=== PATIENT | male | born 1965 | race Hispanic/Latino ===

== ENCOUNTER 2017-04-09 19:05 | Emergency (ER) | payer BC, OTHER ==
[2017-04-09 19:15] VITALS: RESP 16; TEMP 98; O2SAT 100; BMI 31.6
[2017-04-09] MEDS ORDERED: Oxycodone/Acetaminophen 5/325 mg Tab PO STA (19:20)
[2017-04-09] MEDS ORDERED: Oxycodone/Acetaminophen 5/325 mg Tab ONE (19:45)
--- NOTE | 2017-04-09 19:48 | ED PDOC ---
Upper Extremity Pain/Injury Time Seen by Provider: 04/09/17 19:44 Chief Complaint (Nursing): Upper Extremity Problem/Injury Chief Complaint (Provider): Right Shoulder injury History Per: Patient History/Exam Limitations: no limitations Onset/Duration Of Symptoms: Mins Current Symptoms Are (Timing): Still Present Quality: "Pain" Exacerbating Factor(s): Movement Additional Complaint(s): Ovidio Serra, a 51 year old male, presents to the ED with an injury to his right shoulder. The patient reports that while doing push ups he heard a "pop" sound and then felt immediate pain, prompting him to come into the ED. Denies numbness, tingling. PMD: Ovidio Ferrer Past Medical History Reviewed: Historical Data, Nursing Documentation, Vital Signs Vital Signs: Last Vital Signs Temp 98.0 F 04/09/17 19:13 Pulse 125 H 04/09/17 19:13 Resp 16 04/09/17 19:13 BP 124/87 04/09/17 19:13 Pulse Ox 100 04/09/17 19:13 - Medical History PMH: Back Problems - Surgical History Surgical History: Cholecystectomy - Family History Family History: States: Unknown Family Hx - Social History Current smoker - smoking cessation education provided: No Ex-Smoker (has not smoked in the last 12 months): No Alcohol: None Drugs: Denies - Home Medications Home Medications: Ambulatory Orders Medication Instructions Recorded Ibuprofen [Motrin] 600 mg PO Q8 #20 tab 10/15/14 Cyclobenzaprine [Cyclobenzaprine 10 mg PO BID #14 tab 04/09/17 HCl] Naproxen 500 mg PO BID #10 tablet. 04/09/17 - Allergies Allergies/Adverse Reactions: Allergies Allergy/AdvReac Type Severity Reaction Status Date / Time No Known Allergies Allergy Unverified 11/05/12 09:27 Review of Systems ROS Statement: Except As Marked, All Systems Reviewed And Found Negative Musculoskeletal: Positive for: Shoulder Pain (injury to right shoulder) Neurological: Negative for: Numbness (no numbness or tingling) Physical Exam - Reviewed Nursing Documentation Reviewed: Yes Vital Signs Reviewed: Yes - Physical Exam Appears: Positive for: Non-toxic, No Acute Distress Head Exam: Positive for: ATRAUMATIC, NORMAL INSPECTION, NORMOCEPHALIC Skin: Positive for: Normal Color, Warm, Dry. Negative for: Rash Eye Exam: Positive for: Normal appearance Extremity: Positive for: Tenderness (AC joint tenderness noted). Negative for: Normal ROM (Inability to range shoulder; Able to pronate and supinate right shoulder.), Deformity (no obvious deformity of right shoulder), Swelling Neurologic/Psych: Positive for: Alert, Oriented - ECG O2 Sat by Pulse Oximetry: 100 (RA) Pulse Ox Interpretation: Normal Medical Decision Making Medical Decision Makin Initial Impression 51 y/o male presenting with right shoulder injury Initial Plan: * Percocet (5/325 mg tab) 1 Tab PO * Toradol 30 mg IM * RAD right shoulder * Evaluation 2011 EXAM: XR Right Shoulder Complete, 2 or More Views CLINICAL HISTORY: 51 years old, male; Pain; Shoulder; Right; Additional info: Shoulder pain TECHNIQUE: Two or more views of the right shoulder. COMPARISON: No relevant prior studies available. FINDINGS: Bones/joints: Normal bone mineralization. No fracture. No dislocation. Acromioclavicular joint space narrowing and osteophyte formation. Soft tissues: Mineralization along the superolateral aspect of the humeral head likely within the supraspinatus or infraspinatus tendon. The soft tissues are unremarkable. Lungs: Abnormal appearance of the imaged lung parenchyma. IMPRESSION: 1. No acute osseous abnormality of the right shoulder. 2. Acromioclavicular joint osteoarthrosis. 3. Probable calcific tendinitis of the supraspinatus and/or infraspinatus tendon (s). PT given a sling for shoulder support advised to have pmd f/u with orthopedics and naproxen flexril for pain/stiffness. advised however to range shoulder as much as possible to prevent further stiffness to shoulder. Scribe Attestation Documented by Jessica Delgadillo acting as a scribe for Swapna Ernandez PA-C. Scribe Attestation All medical record entries made by the Scribe were at my direction and personally dictated by me. I have reviewed the chart and agree that the record accurately reflects my personal performance of the history, physical exam, medical decision making, and the department course for this patient. I have also personally directed, reviewed, and agree with the discharge instructions and disposition. Disposition - Clinical Impression Clinical Impression: Shoulder injury, Supraspinatus tendonitis, Infraspinatus tendinitis, AC ( acromioclavicular) joint arthritis - Patient ED Disposition Is Patient to be Admitted: No Counseled Patient/Family Regarding: Diagnosis, Need For Followup, Rx Given - Disposition Referrals: [facility]] Letty Clark MD [Staff Provider] - Disposition: Routine/Home Disposition Time: 20:28 Condition: STABLE Prescriptions: Cyclobenzaprine [Cyclobenzaprine HCl] 10 mg PO BID #14 tab Naproxen 500 mg PO BID #10 tablet. Instructions: Calcific Tendinitis (ED), Rotator Cuff Injury (ED) Forms: [facility] ED School/Work Excuse
[2017-04-09 20:28] VITALS: BP 133/80; PULSE 103
--- NOTE | 2017-04-10 09:24 | RAD ---
PROCEDURE: Radiographs of the Right Shoulder HISTORY: shoulder pain COMPARISON: No prior. FINDINGS: BONES: Normal. No fracture. JOINTS: Acromioclavicular joint space narrowing with degenerative spurring. Supraspinatus calcific tendonitis. SOFT TISSUES: Normal. OTHER FINDINGS: None. IMPRESSION: No demonstrated fracture dislocation. Supraspinatus calcific tendonitis.
== END 2017-04-09 20:33 | disposition home or self-care (01) ==
LOC: H.ER 19:05
DX: S49.91XA Unspecified injury of right shoulder and upper arm, initial encounter (principal); X50.9XXA Other and unspecified overexertion or strenuous movements or postures, initial encounter; Y92.89 Other specified places as the place of occurrence of the external cause
CPT/HCPCS: 73030; 96372; 99283; J1885

== ENCOUNTER 2018-08-10 17:09 | Emergency (ER) | payer OTHER ==
[2018-08-10 17:09] VITALS: BMI 33.5
[2018-08-10 17:13] VITALS: O2SAT 99
--- NOTE | 2018-08-10 18:38 | ED PDOC ---
HPI: Back Time Seen by Provider: 08/10/18 17:50 Chief Complaint (Nursing): Back Pain Chief Complaint (Provider): Hip/Sciatica Pain History Per: Patient Onset/Duration Of Symptoms: Other (acute on chronic) Current Symptoms Are (Timing): Still Present Additional Complaint(s): Patient is a 52 year old male who reports acute on chronic right hip pain secondary to a labral tear and sciatica pain. 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 He denies taking any medications prior to arrival and he denies any recent fall or trauma. Patient states his symptoms have not changed from prior flares in past. Otherwise: (-) numbness, (-) saddle anesthesia, (-) abdominal pain, (-) chest pain, (-) nausea, (-) vomiting, (-) diarrhea, (-) incontinence, (-) paresthesias, (-) weakness, (-) acute bowel or bladder dysfunction, (-) fever. PMD: Ovidio Hernandez Past Medical History Reviewed: Historical Data, Nursing Documentation, Vital Signs Vital Signs: Last Vital Signs Temp 98.6 F 08/10/18 17:11 Pulse 98 H 08/10/18 17:11 Resp 16 08/10/18 17:11 BP 135/93 H 08/10/18 17:11 Pulse Ox 99 08/10/18 17:11 - Medical History Other PMH: chronic pain - Surgical History Surgical History: Cholecystectomy - Family History Family History: States: Unknown Family Hx - Social History Current smoker - smoking cessation education provided: No Ex-Smoker (has not smoked in the last 12 months): No Alcohol: None Drugs: Denies - Home Medications Home Medications: Ambulatory Orders Medication Instructions Recorded Ibuprofen [Motrin Tab] 600 mg PO Q6 PRN 05/11/17 Acetaminophen [Acetaminophen 8 650 mg PO Q8 PRN #21 tablet.er 08/10/18 Hour] Cyclobenzaprine [Cyclobenzaprine 10 mg PO Q8 PRN #12 tab 08/10/18 HCl] Meloxicam [Mobic] 15 mg PO DAILY #10 tablet 08/10/18 - Allergies Allergies/Adverse Reactions: Allergies Allergy/AdvReac Type Severity Reaction Status Date / Time No Known Allergies Allergy Verified 08/10/18 17:11 Review of Systems ROS Statement: Except As Marked, All Systems Reviewed And Found Negative Constitutional: Negative for: Fever Cardiovascular: Negative for: Chest Pain Gastrointestinal: Negative for: Nausea, Vomiting, Abdominal Pain, Diarrhea Genitourinary Male: Negative for: Incontinence Musculoskeletal: Positive for: Other (right hip pain) Neurological: Negative for: Weakness, Numbness Physical Exam - Reviewed Nursing Documentation Reviewed: Yes Vital Signs Reviewed: Yes - Physical Exam Comments: GENERAL APPEARANCE: Patient is awake, alert, oriented x 3, in no acute distress. Resting comfortably. SKIN: Warm, dry; (-) cyanosis. EYES: (-) conjunctival injection ENMT: Mucous membranes moist. Airway patent, (-) stridor. NECK: Supple, FROM CHEST AND RESPIRATORY: (-) rales, (-) rhonchi, (-) wheezes; breath sounds equal bilaterally. Respirations even and nonlabored. HEART AND CARDIOVASCULAR: (-) irregularity ABDOMEN AND GI: Soft; (-) tenderness (-) distention (-) guarding BACK: (+) right paralumbar/posterior hip and right sciatic notch tenderness, (- ) spasm, (-) direct bony tenderness, (-) deformity. EXTREMITIES: (-) deformity. Distal pulses good bilaterally. NEURO AND PSYCH: Mental status as above. Intact sensation bilaterally; normal strength in extension of the knees, plantar and dorsiflexion of the toes. Gait: steady. Speech: clear. (-) facial asymmetry - ECG O2 Sat by Pulse Oximetry: 99 (RA) Pulse Ox Interpretation: Normal Medical Decision Making Medical Decision Making: Time: 1824 Impression: acute on chronic hip and sciatica pain Plan: --flexeril 10 mg PO (not driving home) --Toradol 30 mg PO --Re-evaluation 1919 On re-evaluation, patient reports improvement of symptoms. On exam, patient remains AAOx3, in no acute distress. Vitals stable. Lab/Diagnostic results d/w the patient in great detail. Diagnosis of acute on chronic hip pain, sciatica d/w the patient. Based on history, exam and diagnostic results, plan will be for outpatient follow up with ortho. Patient instructed to follow-up with pmd / referral provided / the clinic in 1- 2 days without fail. Advised to take medication as prescribed. Return to the emergency room at any time for any new or worsening symptoms. Patient states he fully agrees with and understands discharge instructions. States that he agrees with the plan and disposition. Verbalized and repeated discharge instructions and plan. I have given the patient opportunity to ask any additional questions. Scribe Attestation: Documented by Gurmeet Reyes acting as a scribe for Shannon Moura Provider Scribe Attestation: All medical record entries made by the Scribe were at my direction and personally dictated by me. I have reviewed the chart and agree that the record accurately reflects my personal performance of the history, physical exam, medi marisol decision making, and the department course for this patient. I have also personally directed, reviewed, and agree with the discharge instructions and disposition. Disposition - Clinical Impression Clinical Impression: Chronic hip pain, Sciatica of right side - Patient ED Disposition Is Patient to be Admitted: No Counseled Patient/Family Regarding: Studies Performed, Diagnosis, Need For Followup, Rx Given - Disposition Referrals: Marcelo Garrido III, MD [Staff Provider] - Disposition: Routine/Home Disposition Time: 19:20 Condition: STABLE Additional Instructions: The emergency medical care you received today was directed at your acute symptoms. If you were prescribed any medication, please fill it and take as directed. It may take several days for your symptoms to resolve. Return to the Emergency Department if your symptoms worsen, do not improve, or if you have any other problems. Please contact your doctor in 2 days for re-evaluation and follow up / or call one of the physicians/clinics you have been referred to that are listed on the Patient Visit Information form that is included in your discharge packet. Bring any paperwork you were given at discharge with you along with any medications you are taking to your follow up visit. Our treatment cannot replace ongoing medical care by a primary care provider (PCP) outside of the emergency department. Prescriptions: Acetaminophen [Acetaminophen 8 Hour] 650 mg PO Q8 PRN #21 tablet.er PRN Reason: Pain, Moderate (4-7) Cyclobenzaprine [Cyclobenzaprine HCl] 10 mg PO Q8 PRN #12 tab PRN Reason: Muscle Spasm Meloxicam [Mobic] 15 mg PO DAILY #10 tablet Instructions: Sciatica, Chronic Pain (DC), Hip Pain (DC), Sciatica Exercises Forms: [facility] (Russian), [facility] ED School/Work Excuse Print Language: MONGOLIAN - POA Present On Arrival: None
[2018-08-10 20:32] VITALS: BP 132/78; PULSE 74; RESP 18; TEMP 98.1
== END 2018-08-10 20:31 | disposition home or self-care (01) ==
LOC: H.ER 17:09
DX: M54.31 Sciatica, right side (principal); G89.29 Other chronic pain
CPT/HCPCS: 96372; 99283; J1885